=== PATIENT | male | born 1955 | race Caucasian/White ===

== ENCOUNTER 2019-03-08 02:43 | Inpatient (IN) | payer BC, OTHER ==
[~2019-03-08] VITALS: Ht 213.4 cm; Wt 117.9 kg
[2019-03-08] MEDS ORDERED: SODIUM CHLORIDE FLUSH 10ML SYR IVF ONE (03:00)
[2019-03-08] MEDS ORDERED: MORPHINE SULFATE 4 MG/ML, 1ML IVPush PRN (03:00)
[2019-03-08] MEDS ORDERED: ASPIRIN 81 MG TABLET CHEW PO ONE (03:00)
--- NOTE | 2019-03-08 03:12 | NUR ---
BREAK RN, PT TO ROOM FROM TRIAGE WITH C/O LEFT UPPER CHEST PAIN WORSE WITH INHALATION STARTING AT 1 PM YESTERDAY, WORSINING ESSIE, PT SKIN COOL AND CLAMMY PT PLEASENT IN NAD AT THIS TIME , PLACED ON ALL MONITORS, PIV TO RIGHT AC LABS SENT TO LAB
[2019-03-08 03:16] LABS: BASOPHILS # (AUTO) 0.07 x10^3/uL (0-0.1); BASOPHILS % (AUTO) 1 % (0-1); EOSINOPHILS # (AUTO) 0.01 x10^3/uL (0-0.4); EOSINOPHILS % (AUTO) 0 % (1-7); LYMPHOCYTES % (AUTO) 10 % (22-44); MD NO; MEAN CORPUSCULAR HEMOGLOBIN 28.5 pg (27.5-34.5); MEAN CORPUSCULAR HGB CONC 32.9 g/dL (33.2-36.2); MEAN CORPUSCULAR VOLUME 86.6 fL (81-97); MEAN PLATELET VOLUME 9.2 fL (7.4-10.4); MONOCYTES # (AUTO) 1.32 x10^3/uL (0.2-0.8); MONOCYTES % (AUTO) 14 % (2-9); NEUTROPHILS # (AUTO) 7.39 x10^3/uL (1.8-6.8); NEUTROPHILS % (AUTO) 76 % (42-75); PLATELET COUNT 234 x10^3/uL (130-400); RED BLOOD COUNT 5.43 x10^6/uL (4.38-5.82); RED CELL DISTRIBUTION WIDTH 13.2 % (9.4-14.8)
[2019-03-08] MEDS ORDERED: MORPHINE SULFATE 4 MG/ML, 1ML ONE (03:22)
[2019-03-08] MEDS ORDERED: ONDANSETRON 2MG/ML, 2ML ONE (03:22)
[2019-03-08] MEDS ORDERED: ASPIRIN 81 MG TABLET CHEW ONE (03:22)
[2019-03-08 03:24] LABS: PROTHROMBIN TIME 10.5 Seconds (9.6-11.5)
[2019-03-08] MEDS ORDERED: NITROGLYCERIN SINGLE TAB 0.4 MG SL ONE (03:24)
[2019-03-08 03:26] LABS: ALANINE AMINOTRANSFERASE 105 U/L (12-78); ALBUMIN 3.8 g/dL (3.4-5.0); ANION GAP 4 mmol/L (5-15); CHLORIDE 110 mmol/L (98-107)
[2019-03-08 03:30] LABS: ALKALINE PHOSPHATASE 111 U/L (45-117); BILIRUBIN,TOTAL 0.8 mg/dL (0.2-1.0); TOTAL PROTEIN 7.1 g/dL (6.4-8.2); TROPONIN I < 0.015 ng/mL (0.000-0.045)
[2019-03-08] MEDS ORDERED: ONDANSETRON 2MG/ML, 2ML IVPush ONE (03:30)
[2019-03-08] MEDS ORDERED: NITROGLYCERIN SINGLE TAB 0.4 MG SL PRN (03:30)
--- NOTE | 2019-03-08 03:39 | NUR ---
0323 code cardiac was called d/t 2nd ekg was changed to inferior or lateral given ntg SL with asa 162mg per dr coy cardiac pads on 2 iv was inserted waiting for dr gupta now pt stated chest pain is better
[2019-03-08] MEDS ORDERED: LIDOCAINE 1%, 20ML ONE (03:54)
[2019-03-08] MEDS ORDERED: FENTANYL PF 250 MCG/5ML ONE (03:54)
[2019-03-08] MEDS ORDERED: HEPARIN 1,000 UNITS/ML, 10ML ONE (03:54)
[2019-03-08] MEDS ORDERED: MIDAZOLAM 1 MG/ML, 5ML ONE (03:54)
--- NOTE | 2019-03-08 04:14 | NUR ---
[facility]
[2019-03-08 05:00] VITALS: BP 129/77
[2019-03-08] MEDS ORDERED: SODIUM CHLORIDE 0.9% 500 ML IV SCH (05:00)
[2019-03-08 08:00] VITALS: BP 125/83
[2019-03-08] MEDS: INDOMETHACIN 50 MG CAPSULE PO SCH ×3 (09:03→20:53)
[2019-03-08 09:11] VITALS: BP 113/83
[2019-03-08] MEDS: HEPARIN 5,000 UNITS/ML, 1ML SQ SCH ×2 (10:35→17:25)
[2019-03-08 14:20] VITALS: BP 138/91
[2019-03-08 16:42] VITALS: BP 147/87
[2019-03-08 19:36] VITALS: BP 151/85
[2019-03-08] MEDS ORDERED: INDOMETHACIN 25 MG CAPSULE ONE (20:43)
[2019-03-09 03:28] VITALS: BP 132/87
[2019-03-09] MEDS: HEPARIN 5,000 UNITS/ML, 1ML SQ SCH ×2 (04:18→11:40)
[2019-03-09 05:45] LABS: ANION GAP 6 mmol/L (5-15); CALCIUM 8.4 mg/dL (8.5-10.1); CHLORIDE 111 mmol/L (98-107)
[2019-03-09 05:57] LABS: ALANINE AMINOTRANSFERASE 263 U/L (12-78); ALKALINE PHOSPHATASE 137 U/L (45-117); BILIRUBIN,TOTAL 2.1 mg/dL (0.2-1.0); CREATININE 1.29 mg/dL (0.7-1.3); TOTAL PROTEIN 6.1 g/dL (6.4-8.2)
[2019-03-09 06:49] VITALS: BP 143/77
[2019-03-09] MEDS ORDERED: INDOMETHACIN 25 MG CAPSULE ONE (08:40)
[2019-03-09] MEDS: INDOMETHACIN 50 MG CAPSULE PO SCH (08:43)
[2019-03-09] MEDS ORDERED: INDO50CA5 PO ×3 (11:49)
== END 2019-03-09 12:45 | disposition home or self-care (01) | DRG 287 ==
LOC: ED 03:36 → EDIP 04:13 → 5SO 05:06 → DCLOUNGE 03-09 12:30
PROVIDERS: ADMIT Family Medicine; ATTEND Family Medicine
PROC: 4A023N7 Measurement of Cardiac Sampling and Pressure, Left Heart, Percutaneous Approach (ICD-10-PCS; principal; 2019-03-08)
PROC: B2111ZZ Fluoroscopy of Multiple Coronary Arteries using Low Osmolar Contrast (ICD-10-PCS; 2019-03-08)
PROC: B2151ZZ Fluoroscopy of Left Heart using Low Osmolar Contrast (ICD-10-PCS; 2019-03-08)
DX: I30.9 Acute pericarditis, unspecified (principal); N17.9 Acute kidney failure, unspecified; E86.0 Dehydration; I10 Essential (primary) hypertension; K75.9 Inflammatory liver disease, unspecified; N28.1 Cyst of kidney, acquired; N31.9 Neuromuscular dysfunction of bladder, unspecified; Z86.718 Personal history of other venous thrombosis and embolism; Z87.442 Personal history of urinary calculi; Z87.891 Personal history of nicotine dependence
CPT/HCPCS: 36415; 93458; 99291; J3490; 71045; 71275; 76700; 80053; 80074; 83690; 83880; 84443; 84484; 85025; 85379; 85610; 85651; 85730; 86140; 86704; 86705; 86706; 86707; 86803; 87340; 87350; 93005; 93306; 93970; 99156; C1760; C1769; C1894; G0378; J1644; J2250; J3010; J7040; Q9967

== ENCOUNTER 2019-03-18 10:58 | Emergency (ER) | payer BC ==
[~2019-03-18] VITALS: Ht 213.4 cm; Wt 122.0 kg
[~2019-03-18 10:58] MED LIST: INDO50CA5 PO
[2019-03-18] MEDS ORDERED: SODIUM CHLORIDE FLUSH 10ML SYR IVF ONE (11:30)
--- NOTE | 2019-03-18 11:46 | NUR ---
CLAIMS SUPERVISOR: PT TO ROOM FROM [facility]
--- NOTE | 2019-03-18 12:06 | NUR ---
PT TO ROOM 17 W/ C/O SOB THAT HAS GOTTEN BETTER AFTER PT PLACED ON INDOMETHICIN AND STATES LAST NOC PT STATES "I FELT LIKE I COULDN'T GET ENOUGH AIR". C/O MILD SOB AT THIS TIME. PT ALSO C/O BLOOD IN URINE STARTED A WHILE BACK. PT RESTING ON [employer]. MONITORS IN PLACE. NADN. VSS. PT SPEAKING IN FULL SENTENCES.
[2019-03-18 12:12] LABS: BASOPHILS # (AUTO) 0.05 x10^3/uL (0-0.1); BASOPHILS % (AUTO) 1 % (0-1); EOSINOPHILS # (AUTO) 0.14 x10^3/uL (0-0.4); EOSINOPHILS % (AUTO) 2 % (1-7); LYMPHOCYTES # (AUTO) 1.28 x10^3/uL (1-3.4); LYMPHOCYTES % (AUTO) 18 % (22-44); MD NO; MEAN CORPUSCULAR HEMOGLOBIN 27.9 pg (27.5-34.5); MEAN CORPUSCULAR HGB CONC 32.1 g/dL (33.2-36.2); MEAN CORPUSCULAR VOLUME 87.2 fL (81-97); MEAN PLATELET VOLUME 8.4 fL (7.4-10.4); MONOCYTES # (AUTO) 0.87 x10^3/uL (0.2-0.8); MONOCYTES % (AUTO) 12 % (2-9); NEUTROPHILS # (AUTO) 4.67 x10^3/uL (1.8-6.8); NEUTROPHILS % (AUTO) 67 % (42-75); PLATELET COUNT 383 x10^3/uL (130-400); RED BLOOD COUNT 4.66 x10^6/uL (4.38-5.82); RED CELL DISTRIBUTION WIDTH 13.7 % (9.4-14.8)
[2019-03-18 12:19] LABS: ALBUMIN 3.3 g/dL (3.4-5.0); ANION GAP 6 mmol/L (5-15); CALCIUM 8.7 mg/dL (8.5-10.1); CHLORIDE 112 mmol/L (98-107)
--- NOTE | 2019-03-18 12:25 | NUR ---
self cath kit with instructions given to pt.
[2019-03-18 12:26] LABS: ALANINE AMINOTRANSFERASE 120 U/L (12-78); ALKALINE PHOSPHATASE 325 U/L (45-117); BILIRUBIN,TOTAL 1.2 mg/dL (0.2-1.0); CREATININE 1.14 mg/dL (0.7-1.3); TOTAL PROTEIN 6.8 g/dL (6.4-8.2); TROPONIN I < 0.015 ng/mL (0.000-0.045)
--- NOTE | 2019-03-18 13:06 | NUR ---
PT ambulated w/ pulse ox monitor. Patient 94-98% on RA, pulse rate 52. c/o increased SOB with ambulation.
[2019-03-18 13:10] LABS: MICROSCOPIC AUTO
[2019-03-18 13:14] LABS: CULTURE INDICATED? YES
[2019-03-18 13:25] VITALS: BP 144/89
--- NOTE | 2019-03-18 13:25 | NUR ---
PT RESTING ON YAZMIN. KENDRICK. VSS. AWARE OF POC TO CONSULT CARDIOLOGY.
--- NOTE | 2019-03-18 13:56 | NUR ---
MD AT BEDSIDE UPDATING PT RE:POC.
== END 2019-03-18 14:24 | disposition home or self-care (01) ==
LOC: ED 11:56
DX: I48.91 Unspecified atrial fibrillation (principal); N30.01 Acute cystitis with hematuria; R06.00 Dyspnea, unspecified; I24.9 Acute ischemic heart disease, unspecified
CPT/HCPCS: 36415; 71045; 80053; 81001; 84484; 85025; 87086; 93005; 99284

== ENCOUNTER 2019-04-04 12:25 | Outpatient (CLI) | payer BC | END 2019-04-04 23:59 | disposition home or self-care (01) | LOC: CVU 12:25 | PROVIDERS: ATTEND Internal Medicine Cardiovascular Disease | DX: I08.8 Other rheumatic multiple valve diseases (principal); I48.91 Unspecified atrial fibrillation; I10 Essential (primary) hypertension | CPT/HCPCS: 93306 ==

== ENCOUNTER 2019-04-19 07:49 | Emergency (ER) | payer BC ==
[~2019-04-19] VITALS: Ht 213.4 cm; Wt 118.2 kg
[2019-04-19 10:30] VITALS: BP 166/107
== END 2019-04-19 11:04 | disposition home or self-care (01) ==
LOC: ED 09:54
DX: R31.0 Gross hematuria (principal); N20.0 Calculus of kidney; I48.91 Unspecified atrial fibrillation; Z79.01 Long term (current) use of anticoagulants
CPT/HCPCS: 36415; 74176; 80053; 81001; 85025; 87086; 99284

== ENCOUNTER 2019-04-28 06:53 | Outpatient (CLI) | payer BC | END 2019-04-28 23:59 | disposition home or self-care (01) | LOC: CVU 06:53 | PROVIDERS: ATTEND Physician Assistant Medical | DX: I08.8 Other rheumatic multiple valve diseases (principal); I31.9 Disease of pericardium, unspecified | CPT/HCPCS: 0399T; 93306 ==

== ENCOUNTER 2019-07-17 09:56 | Outpatient (CLI) | payer BC ==
[~2019-07-17 09:56] MED LIST changes: +APIX5TAB PO; +CLON0.1T22 PO; +COLC0.6T37 PO; +DOXA1TAB2 PO; +INDO50CA15 PO; -INDO50CA5 PO; +LOSA50TA14 PO; +METO-93 PO; +METO200T47 PO
== END 2019-07-17 23:59 | disposition home or self-care (01) ==
LOC: CVU 09:56
PROVIDERS: ATTEND Registered Nurse
DX: I08.3 Combined rheumatic disorders of mitral, aortic and tricuspid valves (principal); I48.19 Other persistent atrial fibrillation; I82.409 Acute embolism and thrombosis of unspecified deep veins of unspecified lower extremity; I10 Essential (primary) hypertension
CPT/HCPCS: 93306